=== PATIENT | male | born 1955 | race Caucasian/White ===

== ENCOUNTER 2024-01-03 09:37 | Inpatient (IN) ==
[2024-01-03 10:43] LABS: Basophils # (Auto) 0.04 K/mcL (0.00-0.30); Basophils % (Auto) 0.7 % (0.0-2.0); Eosinophils # (Auto) 0.14 K/mcL (0.00-0.70); Eosinophils % (Auto) 2.4 % (0.0-7.0); Hematocrit 35.7 % (40.1-51.0); Hemoglobin 12.5 g/dL (13.7-17.5); Lymphocytes % (Auto) 18.7 % (15.5-49.0); Mean Cell Volume 86.9 fL (80.0-100.0); Mean Platelet Volume 10.4 fL (8.8-12.5); Monocytes # (Auto) 0.71 K/mcL (0.10-0.90); Monocytes % (Auto) 12.1 % (1.0-12.0); Neutrophils % (Auto) 65.9 % (38.0-78.0); Platelet Count 206 K/mcL (140-440); RBC 4.11 M/mcL (4.63-6.08); WBC 5.9 K/mcL (4.5-11.0)
[2024-01-03 11:10] LABS: ALT/SGPT 8 U/L (<40); AST/SGOT 19 U/L (<40); Albumin/Globulin Ratio 1.4 (1.0-2.3); Alkaline Phosphatase 99 U/L (39-117); Bilirubin,Total 0.7 mg/dL (0.1-1.0); Blood Urea Nitrogen 46 mg/dL (8-23); Calcium 9.7 mg/dL (8.6-10.4); Carbon Dioxide 20 mmol/L (22-30); Chloride 92 mmol/L (96-108); Globulin 2.8 gm/dL (2.2-3.7); Glomerular Filtration Rate 31; Glucose 132 mg/dL (70-105); Potassium 3.1 mmol/L (3.3-5.1); Sodium 130 mmol/L (133-145); Thyroid Stimulating Hormone 1.16 uIU/mL (0.27-5.01)
[2024-01-03 11:59] LABS: Appearance,Urine Clear (Clear); Bacteria,Urine Many /hpf (0); Bilirubin,Urine Negative (Negative); Color,Urine Yellow; Glucose,Urine (UA) Negative (Negative); Ketones,Urine Negative (Negative); Leukocyte Esterase,Urine Moderate /uL (Negative); Mucus,Urine Few /hpf; Nitrate,Urine Positive (Negative); Protein,Urine Negative (Negative); Urine Blood Trace-intact ery/mcL (Negative); Urine RBC > 182 /hpf (0-1); Urine Squamous Epithelial Cell 0 /hpf (0-4); Urine WBC > 182 /hpf (0-4); Urobilinogen,Urine Normal
[2024-01-03] MEDS: cefTRIAXone 2 GM in DEXTROSE 5% IN WATER 50 ML IV ONE (12:39)
[2024-01-03 13:08] LABS: Blood Urea Nitrogen 45 mg/dL (8-23); Calcium 9.6 mg/dL (8.6-10.4); Carbon Dioxide 21 mmol/L (22-30); Chloride 93 mmol/L (96-108); Glomerular Filtration Rate 31; Glucose 129 mg/dL (70-105); Potassium 2.9 mmol/L (3.3-5.1); Sodium 131 mmol/L (133-145)
[2024-01-03] MEDS: POTASSIUM CHLORIDE 20 MEQ TABLET PO ONE (13:15)
[2024-01-03] MEDS: 0.9 % SODIUM CHLORIDE 1,000 ML IV ONE (13:30)
[2024-01-03 14:06] LABS: Creatine Kinase 148 U/L (24-195)
[2024-01-03] MEDS: POTASSIUM CHLORIDE 20 MEQ PACKET PO ONE (14:33)
[2024-01-03 16:40] LABS: Thyroid Stimulating Hormone 0.75 uIU/mL (0.27-5.01)
[2024-01-03] MEDS ORDERED: ACETAMINOPHEN 325 MG TABLET PO PRN (17:07)
[2024-01-03] MEDS ORDERED: ONDANSETRON 4 MG/2 ML VIAL IV PRN (17:07)
[2024-01-03] MEDS ORDERED: POLYETHYLENE GLYCOL 3350 17 GM PACKET PO PRN (17:07)
[2024-01-03 17:18] LABS: Free T4 (Free Thyroxine) 1.75 ng/dL (0.93-1.70)
[2024-01-03 18:43] LABS: Phosphorous 2.1 mg/dL (2.5-4.5)
[2024-01-03 18:51] LABS: Blood Urea Nitrogen 40 mg/dL (8-23); Calcium 9.8 mg/dL (8.6-10.4); Carbon Dioxide 21 mmol/L (22-30); Chloride 99 mmol/L (96-108); Glomerular Filtration Rate 35; Glucose 104 mg/dL (70-105); Potassium 3.8 mmol/L (3.3-5.1); Sodium 136 mmol/L (133-145)
[2024-01-03] MEDS ORDERED: DEXTROSE 31 GM ORAL.SUSP PO PRN (21:29)
[2024-01-03] MEDS ORDERED: DEXTROSE 50% 50 ML VIAL IV PRN (21:29)
[2024-01-03] MEDS: SENNOSIDES 1 TABLET PO SCH (21:34)
[2024-01-03] MEDS: INSULIN GLARGINE, HUMAN 1 UNIT/0.01 ML SQ SCH (21:34)
[2024-01-03] MEDS: HEPARIN 5,000 UNIT/ML VIAL SQ SCH (21:34)
[2024-01-03] MEDS: NEUTRA PHOS 1 PACKET PO ONE (21:37)
[2024-01-03] MEDS: 0.9 % SODIUM CHLORIDE 1,000 ML IV SCH (21:44)
[2024-01-04] MEDS: 0.9 % SODIUM CHLORIDE 10 ML SYRINGE IV SCH (00:32)
[2024-01-04 06:55] LABS: Basophils # (Auto) 0.05 K/mcL (0.00-0.30); Basophils % (Auto) 0.6 % (0.0-2.0); Eosinophils # (Auto) 0.12 K/mcL (0.00-0.70); Eosinophils % (Auto) 1.3 % (0.0-7.0); Hematocrit 35.8 % (40.1-51.0); Hemoglobin 12.5 g/dL (13.7-17.5); Lymphocytes # (Auto) 0.57 K/mcL (1.50-4.80); Lymphocytes % (Auto) 6.4 % (15.5-49.0); Mean Cell Volume 88.2 fL (80.0-100.0); Mean Corpuscular HGB Conc 34.9 g/dL (31.0-36.0); Mean Platelet Volume 9.5 fL (8.8-12.5); Monocytes # (Auto) 0.29 K/mcL (0.10-0.90); Monocytes % (Auto) 3.3 % (1.0-12.0); Neutrophils % (Auto) 88.3 % (38.0-78.0); Platelet Count 248 K/mcL (140-440); RBC 4.06 M/mcL (4.63-6.08); Red Cell Distribution Width 14.4 % (11.5-14.5); WBC 8.9 K/mcL (4.5-11.0)
[2024-01-04 07:00] LABS: ALT/SGPT 9 U/L (<40); AST/SGOT 19 U/L (<40); Albumin 3.6 gm/dL (3.2-5.2); Albumin/Globulin Ratio 1.3 (1.0-2.3); Alkaline Phosphatase 91 U/L (39-117); Bilirubin,Direct < 0.2 mg/dL (0-0.3); Bilirubin,Total 0.5 mg/dL (0.1-1.0); Blood Urea Nitrogen 32 mg/dL (8-23); Carbon Dioxide 19 mmol/L (22-30); Chloride 100 mmol/L (96-108); Globulin 2.7 gm/dL (2.2-3.7); Glomerular Filtration Rate 47; Glucose 131 mg/dL (70-105); Lactate Dehydrogenase 185 U/L (135-225); Phosphorous 2.7 mg/dL (2.5-4.5); Potassium 3.4 mmol/L (3.3-5.1); Sodium 134 mmol/L (133-145); Triglycerides 157 mg/dL (<150)
[2024-01-04] MEDS: INSULIN LISPRO 1 UNIT/0.01 ML UNIT SQ SCH (08:17)
[2024-01-04] MEDS: POTASSIUM CHLORIDE 20 MEQ PACKET PO ONE (08:17)
[2024-01-04] MEDS: ASPIRIN 81 MG TAB.CHEW PO SCH (08:17)
[2024-01-04] MEDS: FINASTERIDE 5 MG TABLET PO SCH (08:17)
[2024-01-04] MEDS: TAMSULOSIN 0.4 MG CAPSULE PO SCH (08:17)
[2024-01-04] MEDS: OMEPRAZOLE 20 MG CAPSULE PO SCH (08:17)
[2024-01-04] MEDS: ATORVASTATIN 40 MG TABLET PO SCH (08:17)
[2024-01-04] MEDS ORDERED: cefTRIAXone 1 GM VIAL IV SCH (09:00)
[2024-01-04] MEDS: SODIUM CHLORIDE 154 MEQ in WATER FOR INJECTION,STERILE 961.5 ML IV SCH (09:56)
[2024-01-04] MEDS: cefTRIAXone 2 GM in DEXTROSE 5% IN WATER 50 ML IV SCH (09:56)
[2024-01-04] MEDS: 0.9 % SODIUM CHLORIDE 1,000 ML IV SCH (10:02)
[2024-01-04] MEDS: POTASSIUM CHLORIDE 20 MEQ TABLET PO SCH (19:23)
[2024-01-05] MEDS: 0.9 % SODIUM CHLORIDE 500 ML IV ONE (00:04)
[2024-01-05 07:04] LABS: Basophils # (Auto) 0.05 K/mcL (0.00-0.30); Basophils % (Auto) 0.7 % (0.0-2.0); Eosinophils # (Auto) 0.38 K/mcL (0.00-0.70); Eosinophils % (Auto) 5.5 % (0.0-7.0); Hemoglobin 11.1 g/dL (13.7-17.5); Lymphocytes # (Auto) 0.91 K/mcL (1.50-4.80); Lymphocytes % (Auto) 13.1 % (15.5-49.0); Mean Cell Volume 91.9 fL (80.0-100.0); Mean Corpuscular HGB Conc 33.6 g/dL (31.0-36.0); Mean Platelet Volume 10.5 fL (8.8-12.5); Monocytes # (Auto) 0.45 K/mcL (0.10-0.90); Monocytes % (Auto) 6.5 % (1.0-12.0); Neutrophils % (Auto) 73.9 % (38.0-78.0); Platelet Count 167 K/mcL (140-440); RBC 3.59 M/mcL (4.63-6.08); Red Cell Distribution Width 14.6 % (11.5-14.5); WBC 6.9 K/mcL (4.5-11.0)
[2024-01-05 07:29] LABS: ALT/SGPT 7 U/L (<40); AST/SGOT 14 U/L (<40); Albumin 3.4 gm/dL (3.2-5.2); Albumin/Globulin Ratio 1.5 (1.0-2.3); Alkaline Phosphatase 78 U/L (39-117); Bilirubin,Direct < 0.2 mg/dL (0-0.3); Bilirubin,Total 0.4 mg/dL (0.1-1.0); Blood Urea Nitrogen 23 mg/dL (8-23); Calcium 8.8 mg/dL (8.6-10.4); Carbon Dioxide 19 mmol/L (22-30); Chloride 102 mmol/L (96-108); Globulin 2.2 gm/dL (2.2-3.7); Glomerular Filtration Rate 56; Glucose 116 mg/dL (70-105); Lactate Dehydrogenase 165 U/L (135-225); Potassium 3.9 mmol/L (3.3-5.1); Sodium 133 mmol/L (133-145); Triglycerides 174 mg/dL (<150); Uric Acid 6.5 mg/dL (2.5-8.0)
[2024-01-06 06:49] LABS: Basophils # (Auto) 0.04 K/mcL (0.00-0.30); Basophils % (Auto) 0.6 % (0.0-2.0); Eosinophils # (Auto) 0.33 K/mcL (0.00-0.70); Hematocrit 32.8 % (40.1-51.0); Lymphocytes # (Auto) 0.85 K/mcL (1.50-4.80); Lymphocytes % (Auto) 12.9 % (15.5-49.0); Mean Cell Volume 90.9 fL (80.0-100.0); Mean Corpuscular HGB Conc 33.5 g/dL (31.0-36.0); Mean Platelet Volume 11.2 fL (8.8-12.5); Monocytes # (Auto) 0.49 K/mcL (0.10-0.90); Monocytes % (Auto) 7.5 % (1.0-12.0); Neutrophils % (Auto) 73.7 % (38.0-78.0); Platelet Count 166 K/mcL (140-440); RBC 3.61 M/mcL (4.63-6.08); Red Cell Distribution Width 14.4 % (11.5-14.5); WBC 6.6 K/mcL (4.5-11.0)
[2024-01-06 07:33] LABS: ALT/SGPT 7 U/L (<40); AST/SGOT 12 U/L (<40); Albumin 3.4 gm/dL (3.2-5.2); Albumin/Globulin Ratio 1.4 (1.0-2.3); Alkaline Phosphatase 79 U/L (39-117); Bilirubin,Direct < 0.2 mg/dL (0-0.3); Bilirubin,Total 0.4 mg/dL (0.1-1.0); Blood Urea Nitrogen 21 mg/dL (8-23); Calcium 8.7 mg/dL (8.6-10.4); Carbon Dioxide 18 mmol/L (22-30); Chloride 102 mmol/L (96-108); Globulin 2.4 gm/dL (2.2-3.7); Glomerular Filtration Rate 68; Glucose 154 mg/dL (70-105); Lactate Dehydrogenase 170 U/L (135-225); Phosphorous 1.8 mg/dL (2.5-4.5); Potassium 4.1 mmol/L (3.3-5.1); Sodium 133 mmol/L (133-145); Triglycerides 240 mg/dL (<150); Uric Acid 5.9 mg/dL (2.5-8.0)
== END 2024-01-06 13:15 | DRG 689 ==
LOC: ED 09:37 → MEDSUR 14:55
PROVIDERS: ADMIT Student in an Organized Health Care Education/Training Program; ATTEND Internal Medicine